=== PATIENT | female | born 1960 ===

== ENCOUNTER 2018-12-29 06:00 | Day surgery (SDC) | payer OTHER ==
[~2018-12-29] VITALS: Ht 157.5 cm; Wt 77.1 kg
[~2018-12-29 06:00] MED LIST: CLONAZEPAM2 M1 PO; METHIMAZOLE10 MG PO; NEURONTIN600 MG PO; PRILOSEC OTC20 MG PO; PROPRANOLOL HCL10 MG PO; TYLENOL ARTHRI650 MG PO; ZANTAC300 MG PO
== END 2018-12-29 13:00 | disposition home or self-care (01) ==
LOC: CIR.AMB 06:00 → SURH 07:00 → O/R 10:17 → OB/GYN 10:17 → EDBD 10:30 → SURH 10:30 → EDSTATUS 10:30 → OB/GYN 10:32 → O/R 10:32 → CIR.AMB 13:00 → O/R 13:40
DX: C54.1 Malignant neoplasm of endometrium (principal); C79.82 Secondary malignant neoplasm of genital organs

== ENCOUNTER 2019-08-04 11:00 | Inpatient (IN) | payer OTHER ==
[~2019-08-04] VITALS: Ht 157.5 cm; Wt 69.9 kg
[2019-08-04] MEDS ORDERED: ZANTAC150 MG PO (11:42)
[2019-08-11] MEDS ORDERED: ACETAMINOPHEN-1 EAC2 PO (08:20)
[2019-08-11] MEDS ORDERED: COLACE100 MG PO (08:20)
== END 2019-08-11 10:20 | disposition home or self-care (01) | DRG 741 ==
LOC: O/R 08-10 05:16 → OB/GYN 08-10 14:44
PROVIDERS: ADMIT Obstetrics & Gynecology Gynecologic Oncology
PROC: 0UT7FZZ Resection of Bilateral Fallopian Tubes, Via Natural or Artificial Opening With Percutaneous Endoscopic Assistance (ICD-10-PCS; 2019-08-10)
PROC: 0UT2FZZ Resection of Bilateral Ovaries, Via Natural or Artificial Opening With Percutaneous Endoscopic Assistance (ICD-10-PCS; 2019-08-10)
PROC: 0UT9FZZ Resection of Uterus, Via Natural or Artificial Opening With Percutaneous Endoscopic Assistance (ICD-10-PCS; principal; 2019-08-10 07:00)
DX: C54.1 Malignant neoplasm of endometrium (principal); K66.0 Peritoneal adhesions (postprocedural) (postinfection); E03.8 Other specified hypothyroidism